=== PATIENT | female | born 1965 | race Asian ===

== ENCOUNTER → 2016-09-27 | Outpatient (CLI) | payer OTHER ==
[~2016-09-27] MED LIST: ACETAMINOPHEN325 M1; NORCO 5-325 TA1 EACH PO; PROTONIX 20 MG20 M1; ZOFRAN4 MG PO; ZOLPIDEM TART6.25 MG
== END ==
LOC: RAD 01:53
DX: Z12.31 Encounter for screening mammogram for malignant neoplasm of breast (principal)